=== PATIENT | female | born 1995 | race Caucasian/White ===

== ENCOUNTER 2016-09-18 12:37 | Emergency (ER) | payer MEDICAID, OTHER ==
[~2016-09-18] VITALS: Ht 162.6 cm; Wt 100.7 kg
[2016-09-18 12:47] VITALS: BP 118/79; PULSE 79; RESP 18; TEMP 96.7; O2SAT 98
--- NOTE | 2016-09-18 12:50 | NUR ---
Patient to ER bed 5 to gown for evaluation. Side rails up. Report given to Henna DUKE.
--- NOTE | 2016-09-18 12:53 | NUR ---
Cindy arredondo in ED - 09/18/16 at 1253 by ANTONINA ANDREW Betts at bedside examining patient.
--- NOTE | 2016-09-18 12:53 | NUR ---
ER Dr. Souza at bedside examining patient.
[2016-09-18 13:10] VITALS: RESP 18
--- NOTE | 2016-09-18 13:10 | NUR ---
Patient given written and verbal discharge instructions and verbalizes understanding. ER MD DR PERRY discussed with patient the results and treatment provided. Patient in stable condition. ID arm band removed. Rx of AZYTHROMYCIN, TESSALON, PREDNISONE given. Patient educated on pain management and to follow up with PMD. Pain Scale 0. Opportunity for questions provided and answered.
== END 2016-09-18 13:10 | disposition home or self-care (01) ==
LOC: SED 12:37
DX: J20.9 Acute bronchitis, unspecified (principal)
CPT/HCPCS: 99283

== ENCOUNTER 2018-11-17 19:38 | Emergency (ER) | payer MEDICAID, OTHER ==
[~2018-11-17] VITALS: Ht 162.6 cm; Wt 100.7 kg
[2018-11-17 20:00] VITALS: BP_SYST 117
[2018-11-17] MEDS ORDERED: KETOROLAC TROMETHAMINE 60 MG/2 ML VIAL IM ONE (20:45)
[2018-11-17 21:17] VITALS: BP_SYST 117
== END 2018-11-17 21:17 | disposition home or self-care (01) ==
LOC: SED 19:38
DX: M54.12 Radiculopathy, cervical region (principal)
CPT/HCPCS: 81025; 96372; 99283; J1885

== ENCOUNTER 2020-05-15 15:27 | Emergency (ER) | payer MEDICAID, SELFPAY ==
[~2020-05-15] VITALS: Ht 162.6 cm; Wt 111.1 kg
[2020-05-15 15:27] VITALS: BP_SYST 133
--- NOTE | 2020-05-15 15:27 | NUR ---
BROUGHT INTO TRIAGE TENT, TRIAGED AND WILL MONITOR
--- NOTE | 2020-05-15 15:29 | NUR ---
Pt brought by mother,A&Ox4, pt presents to ER with sore throat , headache and nausea, states she was exposed to covid, afebrile, skin pink and warm, respirations even and unlabored
--- NOTE | 2020-05-15 15:45 | NUR ---
DR SEN EVALUATING PT IN TRIAGE TENT
[2020-05-15 17:39] VITALS: BP_SYST 133
--- NOTE | 2020-05-15 17:42 | NUR ---
Patient given written and verbal discharge instructions and verbalizes understanding. ER MD discussed with patient the results and treatment provided. Patient in stable condition. ID arm band removed. No Rx given. Patient educated on pain management and to follow up with PMD. Pain Scale 0/10 . Opportunity for questions provided and answered. Medication side effect fact sheet provided.
== END 2020-05-15 17:39 | disposition home or self-care (01) ==
LOC: SED 15:27
DX: R05 Cough (principal); R07.2 Precordial pain; Z20.828 Contact with and (suspected) exposure to other viral communicable diseases
CPT/HCPCS: 71045; 93005; 99285; C9803; U0003

== ENCOUNTER 2022-07-15 14:34 | Emergency (ER) | payer MEDICAID ==
[~2022-07-15] VITALS: Ht 162.6 cm; Wt 100.7 kg
[2022-07-15 15:03] VITALS: BP_SYST 134
--- NOTE | 2022-07-15 15:03 | NUR ---
Patient triaged and placed in waiting room. VSS and patient appears in no acute distress at this time. Accompanied by SELF, awaiting available bed, and MD notified of need for MSE.
--- NOTE | 2022-07-15 15:15 | NUR ---
MD VELEZAW IN TRIAGE FOR MSE
[2022-07-15] MEDS ORDERED: NAPR-1172 PO (16:06)
[2022-07-15 16:14] VITALS: BP_SYST 134
--- NOTE | 2022-07-15 16:14 | NUR ---
Patient given written and verbal discharge instructions and verbalizes understanding. ER MD discussed with patient the results and treatment provided. Patient in stable condition. ID arm band removed. Rx of NAPROXEN given. Patient educated on pain management and to follow up with PMD. Pain Scale 0/10. Opportunity for questions provided and answered. Medication side effect fact sheet provided.
== END 2022-07-15 16:14 | disposition home or self-care (01) ==
LOC: SED 14:34
DX: M72.2 Plantar fascial fibromatosis (principal); M79.672 Pain in left foot; J45.909 Unspecified asthma, uncomplicated; Z79.899 Other long term (current) drug therapy
CPT/HCPCS: 73650-TC; 99283

== ENCOUNTER 2024-03-04 19:29 | Emergency (ER) | payer MEDICAID ==
[~2024-03-04] VITALS: Ht 162.6 cm; Wt 100.7 kg
[~2024-03-04 19:29] MED LIST: NAPR-1172 PO
[2024-03-04 19:51] VITALS: BP_SYST 121; PULSE 75; RESP 20; TEMP 97.4; O2SAT 98
[2024-03-04 20:20] LABS: BILIRUBIN,URINE NEGATIVE (NEGATIVE); BLOOD, URINE NEGATIVE (NEGATIVE); CLARITY/URINE CLEAR (CLEAR); COLOR,URINE YELLOW (YELLOW); GLUCOSE,URINE NEGATIVE (NEGATIVE); KETONES,URINE NEGATIVE (NEGATIVE); LEUKOCYTE ESTERASE ,URINE NEGATIVE (NEGATIVE); NITRITE, URINE NEGATIVE (NEGATIVE); PH,URINE 7.5 (5.0-8.0); PROTEIN URINE NEGATIVE (NEGATIVE); UROBILINOGEN,URINE 0.2 (0.2-1.0)
[2024-03-04 20:34] LABS: BASOPHILS # (AUTO) 0.1 K/uL (0.0-0.2); BASOPHILS % (AUTO) 0.5 % (0.0-2.0); EOSINOPHILS # (AUTO) 0.1 K/uL (0.0-0.4); EOSINOPHILS % (AUTO) 1.2 % (0.0-4.0); HEMOGLOBIN 13.5 g/dL (12.0-16.0); LYMPHOCYTES # (AUTO) 3.3 K/uL (1.0-5.5); MEAN CORPUSCULAR HEMOGLOBIN 29 pg (27-31); MEAN CORPUSCULAR HGB CONC 34 % (32-36); MEAN CORPUSCULAR VOLUME 85 fL (79.0-98.0); MONOCYTES # (AUTO) 0.7 K/uL (0.0-1.0); MONOCYTES % (AUTO) 5.7 % (1.7-9.3); NEUTROPHILS # (AUTO) 7.5 K/uL (1.8-7.7); NEUTROPHILS % (AUTO) 64.6 % (40.0-70.0); PLATELET COUNT (AUTO) 275 K/uL (130-430); RED BLOOD CELL COUNT(AUTO) 4.73 MIL/uL (4.2-6.2); RED CELL DISTRIBUTION WIDTH 13.6 % (9.0-15.0); WHITE BLOOD COUNT (AUTO) 11.6 K/uL (4.8-10.8)
[2024-03-04 20:52] LABS: ALBUMIN 3.7 g/dL (3.4-4.8); BILIRUBIN,DIRECT 0.1 mg/dL (0.0-0.3); CALCIUM 8.9 mg/dL (8.4-11.0); CREATININE 0.96 mg/dL (0.55-1.30); TOTAL BILIRUBIN 0.4 mg/dL (0.0-1.0); TOTAL PROTEIN, SERUM 7.3 g/dL (6.4-8.3)
[2024-03-04] MEDS ORDERED: PRO40 PO (21:39)
[2024-03-04] MEDS: MORPHINE 4 MG INJ. 4 MG/ML VIAL IVP ONE (22:04)
[2024-03-04] MEDS: ONDANSETRON HCL 4 MG/2 ML VIAL IVP ONE (22:06)
[2024-03-04 23:01] VITALS: BP_SYST 121; PULSE 75; RESP 20; TEMP 97.4; O2SAT 98
== END 2024-03-04 22:45 | disposition home or self-care (01) ==
LOC: SED 19:29
DX: K76.0 Fatty (change of) liver, not elsewhere classified (principal); R10.11 Right upper quadrant pain; N28.1 Cyst of kidney, acquired; J45.909 Unspecified asthma, uncomplicated; Z79.899 Other long term (current) drug therapy
CPT/HCPCS: 99285; 96374; 76700; 96375; 80076; 80048; 81001; 83690; 85025; 36415; 81025; 81003; J2405; J2270